=== PATIENT | male | born 1960 | race Caucasian/White ===

== ENCOUNTER 2017-05-05 12:31 | Day surgery (SDC) | payer OTHER, BC ==
[2017-05-05] MEDS ORDERED: HYDROCODONE/APAP 5/325 TAB PO PRN (17:18)
== END 2017-05-05 18:37 | disposition home or self-care (01) ==
LOC: FCATH 12:31
PROVIDERS: ATTEND Internal Medicine Interventional Cardiology
PROC: B211110 Fluoroscopy of Multiple Coronary Arteries using Low Osmolar Contrast, Laser Intraoperative (ICD-10-PCS; principal; 2017-05-05)
PROC: B2151ZZ Fluoroscopy of Left Heart using Low Osmolar Contrast (ICD-10-PCS; principal; 2017-05-05)
PROC: 4A023N7 Measurement of Cardiac Sampling and Pressure, Left Heart, Percutaneous Approach (ICD-10-PCS; principal; 2017-05-05)
DX: I25.119 Atherosclerotic heart disease of native coronary artery with unspecified angina pectoris (principal); E78.5 Hyperlipidemia, unspecified
CPT/HCPCS: 93458; C1769

== ENCOUNTER → 2018-01-03 | Outpatient (CLI) | payer OTHER | LOC: FIMAGING 14:08 | PROVIDERS: ATTEND Family Medicine | DX: R22.31 Localized swelling, mass and lump, right upper limb (principal); N62 Hypertrophy of breast ==

== ENCOUNTER → 2018-07-04 | Outpatient (CLI) | payer OTHER | LOC: FIMAGING 15:04 | PROVIDERS: ATTEND Orthopaedic Surgery | DX: M17.11 Unilateral primary osteoarthritis, right knee (principal); M25.461 Effusion, right knee ==

== ENCOUNTER 2018-08-01 05:56 | Observation (INO) | payer OTHER ==
[2018-08-01] MEDS ORDERED: ROPIVACAINE 0.2% 80 MG, EPINEPHrine 0.2 MG, KETOROLAC TROMETHAMINE 30 MG in SYRINGE 0 ML IU ONE (06:00)
[2018-08-01] MEDS ORDERED: TRANEXAMIC ACID 3,000 MG in NS (SYRINGE) 50 ML IRR ONE (06:00)
[2018-08-01] MEDS ORDERED: ACETAMINOPHEN 325 MG TAB PO ONE (06:16)
[2018-08-01] MEDS ORDERED: DEXAMETHASONE 4 MG/ML VIAL IVP ONE (06:16)
[2018-08-01] MEDS ORDERED: FAMOTIDINE 20 MG TAB PO ONE (06:16)
[2018-08-01] MEDS ORDERED: ceFAZolin 2 GM/DEXTROSE 100 ML IV ONE (06:16)
[2018-08-01] MEDS ORDERED: LR 1,000 ML IV ONE (06:17)
[2018-08-01] MEDS ORDERED: LIDOCAINE 1% 2 ML INJ ID PRN (06:17)
[2018-08-01] MEDS ORDERED: MIDAZOLAM 2 MG/2 ML VIAL IVP ONE (06:44)
--- NOTE | 2018-08-01 06:44 | PDANEPAE ---
ANE History of Present Illness OA here for R knee resurfacing ANE Past Medical History - Cardiovascular History Hx Hypertension: Yes Hx Arrhythmias: No Hx Chest Pain: No Hx Coronary Artery / Peripheral Vascular Disease: No Hx CHF / Valvular Disease: No Hx Palpitations: No - Pulmonary History Hx COPD: No Hx Asthma/Reactive Airway Disease: No Hx Recent Upper Respiratory Infection: No Hx Oxygen in Use at Home: No Hx Sleep Apnea: No Sleep Apnea Screening Result - Last Documented: Positive - Neurologic History Hx Cerebrovascular Accident: No Hx Seizures: No Hx Dementia: No - Endocrine History Hx Diabetes: No - Renal History Hx Renal Disorders: No - Liver History Hx Hepatic Disorders: No - Neurological & Psychiatric Hx Hx Neurological and Psychiatric Disorders: No - Cancer History Hx Cancer: Yes Cancer History Comment: SKIN - Congenital Disorder History Hx Congenital Disorders: No - GI History Hx Gastrointestinal Disorders: Yes Gastrointestinal History Comment: GERD - Other Health History Other Health History: OSTEOARTHRITIS. GYNECOMASTIA - Chronic Pain History Chronic Pain: Yes (SHERRIE KNEE'S) - Surgical History Prior Surgeries: SHERRIE KNEE SCOPES. RT SHLDR RTC REPAIR. REMVL CYST RT AXILLARY ANE Review of Systems Review of Systems: - Exercise capacity Exercise capacity: >=4 METS METS (RN): 5 METS ANE Patient History - Allergies Allergies/Adverse Reactions: No Known Allergies Allergy (Unverified 05/05/17 12:43) - Home Medications Home Medications: Prilosec Otc PO DAILY 05/05/17 [Last Taken 05/05/17] Claritin DAILY 07/03/18 [Last Taken Unknown] - NPO status NPO Status: no food or drink >8 hours - Anes Hx Anes Hx: no prior problems - Smoking Hx Smoking Status: Never smoked - Alcohol Use Alcohol Use: None - Family Anes Hx Family Anes Hx: none Family Hx Anesthesia Complications: NEG ANE Labs/Vital Signs - Vital Signs Vital Signs: reviewed preoperatively; see RN documention for details Height: 177.8 cm Weight: 86.183 kg ANE Physical Exam - Airway Neck exam: FROM Mallampati Score: Class 2 Mouth exam: normal dental/mouth exam - Pulmonary Pulmonary: no respiratory distress, clear to auscultation - Cardiovascular Cardiovascular: regular rate and rhythym, no murmur, rub, or gallop - ASA Status ASA Status: II ANE Anesthesia Plan Anesthesia Plan: GA with mask, spinal Regional Anesthesia: single shot NB, adductor canal FNB
[2018-08-01] MEDS ORDERED: TRANEXAMIC ACID 3,000 MG/50 ML BAG IRR ONE (06:47)
[2018-08-01] MEDS ORDERED: VANCOMYCIN 1 GM VIAL ONE (06:48)
[2018-08-01] MEDS ORDERED: PROPOFOL/EMULSION 500 MG/50 ML BOTTLE IV ONE ×2 (06:52→07:41)
[2018-08-01] MEDS ORDERED: clonIDINE 1 MG/10 ML VIAL EP ONE (07:45)
[2018-08-01] MEDS ORDERED: ROPIVACAINE HCL 150 MG/30 ML INJ ONE (07:45)
[2018-08-01] MEDS ORDERED: oxyCODONE IR 5 MG TAB PO PRN (08:15)
[2018-08-01] MEDS ORDERED: NALOXONE HCL 0.4 MG/ML INJ IVP PRN (08:15)
[2018-08-01] MEDS ORDERED: ACETAMINOPHEN 500 MG TAB PO PRN (08:15)
[2018-08-01] MEDS ORDERED: ONDANSETRON 4 MG/2 ML VIAL IVP PRN ×2 (08:15→08:29)
[2018-08-01] MEDS ORDERED: fentaNYL 100 MCG/2 ML INJ IVP PRN (08:15)
[2018-08-01] MEDS ORDERED: HYDROCODONE/APAP 5/325 TAB PO PRN (08:15)
[2018-08-01] MEDS ORDERED: DIPHENOXYLATE/ATROPINE LOMOTIL 1 TAB PO PRN (08:29)
[2018-08-01] MEDS ORDERED: diphenhydrAMINE 25 MG CAP PO PRN (08:29)
[2018-08-01] MEDS ORDERED: PROMETHAZINE HCL 25 MG/ML INJ IVP PRN (08:29)
[2018-08-01] MEDS ORDERED: BISACODYL 10 MG SUPP PR PRN (08:29)
[2018-08-01] MEDS ORDERED: PROMETHAZINE HCL 25 MG SUPPR PR PRN (08:29)
[2018-08-01] MEDS ORDERED: POLYETHYLENE GLYCOL 3350 17 GM PKT PO PRN (08:29)
[2018-08-01] MEDS ORDERED: METOCLOPRAMIDE 10 MG/2 ML VIAL IVP PRN (08:29)
[2018-08-01] MEDS ORDERED: LACTULOSE 20 GM/30 ML UDCUP PO PRN (08:29)
[2018-08-01] MEDS ORDERED: TEMAZEPAM 15 MG CAP PO PRN (08:29)
[2018-08-01] MEDS ORDERED: MAGNESIUM HYDROXIDE 30 ML UDCUP PO PRN (08:29)
[2018-08-01] MEDS ORDERED: CYCLOBENZAPRINE 10 MG TAB PO PRN (08:29)
[2018-08-01] MEDS ORDERED: ONDANSETRON DISINTEGRATING 4 MG TAB PO PRN (08:29)
[2018-08-01] MEDS ORDERED: LR 1,000 ML IV SCH (08:30)
--- NOTE | 2018-08-01 08:32 | POSTOPPROG ---
Post Op Note Date of Operation: 08/01/18 Surgeon: Kan Monteiro Iv Therapy Nurse: lasha monteiro Anesthesiologist: dr. bocanegra Anesthesia: Spinal, Other (Specify) (adductor canal block) Pre-op Diagnosis: right knee OA Post-op Diagnosis: same Indication: right knee pain Procedure: R med MPL partial knee arthroplasty robot assisted Findings: severe medial knee OA Inf/Abcess present in the surg proc area at time of surgery?: No EBL: 50-100
--- NOTE | 2018-08-01 08:42 | POSTANESTH ---
Post Anesthetic Evaluation Cardiovascular Status: Normal, Stable, Similar to Pre-Op Cond Respiratory Status: Normal, Stable, Similar to Pre-op Cond. Level of Consciousness/Mental Status: Can Participate in Eval, Alert and Oriented Pain Control: Adequate, Prn Tx Ordered Nausea/Vomiting Control: Adequate, Prn Tx Ordered Complications Possibly Related to Anesthesia: None Noted
[2018-08-01] MEDS ORDERED: LISINOPRIL 5 MG TAB PO SCH (09:00)
[2018-08-01] MEDS ORDERED: SENNOSIDES/DOCUSATE SODIUM TAB PO SCH (09:00)
[2018-08-01] MEDS ORDERED: ACETAMINOPHEN 325 MG TAB PO SCH (12:00)
[2018-08-01] MEDS: oxyCODONE IR 5 MG TAB PO PRN ×2 (13:25→16:55)
[2018-08-01] MEDS ORDERED: ceFAZolin 2 GM/DEXTROSE 100 ML IV SCH (15:00)
--- NOTE | 2018-08-01 15:24 | PDHPUP ---
History & Physical Update H&P update statement: This history and physical update is based on an assessment of the patient which was completed after admission or registration (within 24 hours), but prior to the surgery/procedure. H&P update: H&P reviewed & patient examined, no change in patient's condition since H&P completed
[2018-08-01 16:28] VITALS: BP 116/83
[2018-08-01] MEDS ORDERED: FAMOTIDINE 20 MG TAB PO SCH (21:00)
[2018-08-01] MEDS ORDERED: ASPIRIN 81 MG CHEWABLE TAB PO SCH (21:00)
--- NOTE | 2018-08-02 09:15 | GDS ---
ADMISSION DIAGNOSIS: Right knee osteoarthritis. DISCHARGE DIAGNOSIS: Right knee osteoarthritis. PROCEDURE: Right partial knee arthroplasty, medial compartment, robot assisted. VTE PROPHYLAXIS: Recommend aspirin 81 mg twice daily for 4 weeks. BRIEF DESCRIPTION OF HOSPITAL STAY: Patient was admitted for an elective joint arthroplasty. The pa fiorella tolerated the procedure well and has passed physical therapy. The patient was given appropriat e antibiotic prophylaxis and venous thromboembolism prophylaxis. The patient's pain was well control led on oral pain medication, patient was holding down food, and had urinated. Decision was made to d ischarge the patient. The patient was given post-operative prescriptions pre-operatively. PLAN: Follow up as scheduled with Dr. Muse's office August 23 at 10:45 a.m. /[id number]/MODL
--- NOTE | 2018-08-02 12:27 | GOP ---
DATE OF OPERATION: 08/01/2018 SURGEON: Blas Muse MD NEUROSURGEON: Blas Muse MD. LEAD ATHLETE: Vivi Muse P.A.-C. ANESTHESIA: Spinal. PREOPERATIVE DIAGNOSIS: Right knee osteoarthritis. POSTOPERATIVE DIAGNOSIS: Right knee osteoarthritis. PROCEDURE PERFORMED: Right medial compartment partial knee replacement with computer navigation, robotic assist. FINDINGS: ESTIMATED BLOOD LOSS: 30 cc. INDICATIONS: This is a 57-year-old male with progressive pain of the right knee unresponsive to conservative care. Risks and benefits of surgical intervention were explained in detail. DESCRIPTION OF PROCEDURE: The patient was brought to the operating room and placed on the table in supine position. Spinal anesthesia was induced without difficulty. A pneumatic tourniquet was applied about the right proximal thigh and the leg was prepped and draped in sterile fashion. Attention was turned first to the distal aspect of the right femur. At 3 cm proximal to the lateral rise of the femur, 2 percutaneous half pins were placed for fixation of the femoral array. In a similar fashion, 2 pins were placed anterolateral on the tibia for fixation of the tibial array. External land marking and registration of the hip center were performed without difficulty. After exsanguination by elevation, the tourniquet was inflated to 250 mmHg. Incision was made from the tibial tuberosity to the superior pole of the patella. Dissection was carried out through the subcutaneous tissue to the deep fascia using Bovie electrocautery for hemostasis. Medial parapatellar arthrotomy was carried out to the superior pole of the patella. The medial collateral ligament was elevated and the infrapatellar fat pad was resected. Internal femoral and tibial registration were carried out without difficulty and the femoral and tibial checkpoints were placed and verified for accuracy. Attention was turned to the femur. The foot print for the size 4 femoral component was cut with the 6 mm bur using the [email or web address] robotic system and verified for accuracy against the CT based plan. The hole was cut for the femoral post. In a similar fashion, the 6 mm bur was used to cut the foot print for the size 4 tibial component using the [employer]ANIEL system and verified for accuracy against the CT based plan. Attention was turned to the posterior aspect of the knee and remnants of the medial meniscus were excised. The posterior capsule was injected with ropivacaine, epinephrine and Toradol. Trial reduction was carried out and there was excellent range of motion, alignment and stability using the size 4 femoral component and the size 4 x 8 mm polyethylene 4 x 8. All trials were then removed. The joint was thoroughly irrigated and carefully dried. One package of cement and 1 gram of vancomycin were mixed in the vacuum mixer and placed on the fixation surfaces of all components. The components were implanted and all excess cement was thoroughly removed. Implant placement was verified against the CT view plan and found to be excellent. The tourniquet was deflated and all bleeders were coagulated. The wound was thoroughly irrigated and closed using interrupted sutures of 2-0 Vicryl for the joint capsule. The subcu was closed with 3-0 Vicryl and the skin with 4-0 Monocryl. Dermabond and Steri-Strips were applied, followed by a compressive dressing. The patient was then moved from the operating room to the recovery room in good condition, having tolerated the procedure well. PATHOLOGY: Severe medial compartment osteoarthritis. CASE CLASSIFICATION: Clean. /[id number]/MODL MTDD
== END 2018-08-01 17:08 | disposition home or self-care (01) ==
LOC: F3N 05:56
PROVIDERS: ADMIT Orthopaedic Surgery; ATTEND Orthopaedic Surgery
PROC: 8E0Y0CZ Robotic Assisted Procedure of Lower Extremity, Open Approach (ICD-10-PCS; principal; 2018-08-01 07:15)
PROC: 8E0YXBG Computer Assisted Procedure of Lower Extremity, With Computerized Tomography (ICD-10-PCS; principal; 2018-08-01 07:15)
PROC: 0SRC0JZ Replacement of Right Knee Joint with Synthetic Substitute, Open Approach (ICD-10-PCS; principal; 2018-08-01 07:15)
DX: M17.11 Unilateral primary osteoarthritis, right knee (principal)
CPT/HCPCS: 27446; 73560; 97116; 97161; G0378; G8978; G8979; G8980; C1713; J0171; J0690; J0735; J1100; J1885; J2250; J2704; J2795; J3370

== ENCOUNTER → 2018-10-15 | Outpatient (CLI) | payer OTHER | LOC: FIMAGING 09:21 | PROVIDERS: ATTEND Orthopaedic Surgery | DX: Z01.818 Encounter for other preprocedural examination (principal); M17.12 Unilateral primary osteoarthritis, left knee ==

== ENCOUNTER 2018-10-24 05:56 | Observation (INO) | payer OTHER ==
[2018-10-24] MEDS ORDERED: ROPIVACAINE 0.2% 80 MG, EPINEPHrine 0.2 MG, KETOROLAC TROMETHAMINE 30 MG in SYRINGE 0 ML IU ONE (06:00)
[2018-10-24] MEDS ORDERED: TRANEXAMIC ACID 3,000 MG in NS (SYRINGE) 50 ML IRR ONE (06:00)
[2018-10-24] MEDS ORDERED: DEXAMETHASONE 4 MG/ML VIAL IVP ONE (06:27)
[2018-10-24] MEDS ORDERED: FAMOTIDINE 20 MG TAB PO ONE (06:27)
[2018-10-24] MEDS ORDERED: ACETAMINOPHEN 325 MG TAB PO ONE (06:27)
[2018-10-24] MEDS ORDERED: ceFAZolin 2 GM/DEXTROSE 100 ML IV ONE (06:27)
[2018-10-24] MEDS ORDERED: LR 1,000 ML IV ONE (06:28)
[2018-10-24] MEDS ORDERED: TRANEXAMIC ACID 3,000 MG/50 ML BAG IRR ONE (07:37)
[2018-10-24] MEDS ORDERED: VANCOMYCIN 1 GM VIAL ONE (07:37)
[2018-10-24] MEDS ORDERED: MIDAZOLAM 2 MG/2 ML VIAL ONE (07:53)
[2018-10-24] MEDS ORDERED: MIDAZOLAM 2 MG/2 ML VIAL IVP ONE (07:57)
--- NOTE | 2018-10-24 07:57 | PDANEPAE ---
ANE History of Present Illness left partial TKA ANE Past Medical History - Cardiovascular History Hx Hypertension: Yes Hx Arrhythmias: No Hx Chest Pain: No Hx Coronary Artery / Peripheral Vascular Disease: No Hx CHF / Valvular Disease: No Hx Palpitations: No - Pulmonary History Hx COPD: No Hx Asthma/Reactive Airway Disease: No Hx Recent Upper Respiratory Infection: No Hx Oxygen in Use at Home: No Hx Sleep Apnea: No Sleep Apnea Screening Result - Last Documented: Positive - Neurologic History Hx Cerebrovascular Accident: No Hx Seizures: No Hx Dementia: No - Endocrine History Hx Diabetes: No - Renal History Hx Renal Disorders: No - Liver History Hx Hepatic Disorders: No - Neurological & Psychiatric Hx Hx Neurological and Psychiatric Disorders: No - Cancer History Hx Cancer: Yes Cancer History Comment: SKIN - Congenital Disorder History Hx Congenital Disorders: No - GI History Hx Gastrointestinal Disorders: Yes Gastrointestinal History Comment: GERD - Other Health History Other Health History: OSTEOARTHRITIS. GYNECOMASTIA - Chronic Pain History Chronic Pain: Yes (SHERRIE KNEE'S) - Surgical History Prior Surgeries: SHERRIE KNEE SCOPES. RT SHLDR RTC REPAIR. REMVL CYST RT AXILLARY ANE Review of Systems Review of Systems: - Exercise capacity METS (RN): 6 METS ANE Patient History - Allergies Allergies/Adverse Reactions: No Known Allergies Allergy (Verified 10/12/18 08:38) - Home Medications Home medications: home medication list seen and reviewed Home Medications: Omeprazole 20 mg PO DAILY PRN 05/05/17 [Last Taken 10/23/18] Lisinopril [Zestril 5 mg (*)] 5 mg PO DAILY 08/01/18 [Last Taken 10/23/18] Aspirin [Aspirin 81mg (*)] 81 mg PO DAILY 10/12/18 [Last Taken 2 Weeks Ago ~] - NPO status NPO Since - Liquids (Date): 10/23/18 NPO Since - Liquids (Time): 22:15 NPO Since - Solids (Date): 10/23/18 NPO Since - Solids (Time): 19:00 - Anes Hx Anes Hx: no prior problems - Smoking Hx Smoking Status: Never smoked - Family Anes Hx Family Hx Anesthesia Complications: NEG ANE Labs/Vital Signs - Vital Signs Blood Pressure: 120/85 Heart Rate: 64 Respiratory Rate: 18 O2 Sat (%): 93 Height: 177.8 cm Weight: 86.183 kg ANE Physical Exam - Airway Neck exam: FROM Mallampati Score: Class 1 Mouth exam: normal dental/mouth exam - Pulmonary Pulmonary: no respiratory distress - Cardiovascular Cardiovascular: regular rate and rhythym - ASA Status ASA Status: II ANE Anesthesia Plan Anesthesia Plan: spinal Regional Anesthesia: single shot NB, adductor canal FNB
[2018-10-24] MEDS ORDERED: PROPOFOL/EMULSION 500 MG/50 ML BOTTLE IV ONE (08:00)
[2018-10-24] MEDS ORDERED: LIDOCAINE 2% 5 ML SDV ONE (08:00)
[2018-10-24] MEDS ORDERED: ROPIVACAINE HCL 150 MG/30 ML INJ ONE (08:00)
[2018-10-24] MEDS ORDERED: BUPIVACAINE/DEXTROSE 7.5MG/ML 2 ML SPINAL AMP SP ONE (08:00)
[2018-10-24] MEDS ORDERED: LR 500 ML IV PRN (08:28)
[2018-10-24] MEDS ORDERED: NALOXONE HCL 0.4 MG/ML INJ IVP PRN (08:28)
[2018-10-24] MEDS ORDERED: ONDANSETRON 4 MG/2 ML VIAL IVP PRN ×2 (08:28→09:29)
[2018-10-24] MEDS ORDERED: oxyCODONE IR 5 MG TAB PO PRN ×2 (08:28→09:29)
[2018-10-24] MEDS ORDERED: ACETAMINOPHEN 500 MG TAB PO PRN (08:28)
[2018-10-24] MEDS ORDERED: HYDROmorphONE/DILAUDID 2 MG/ML INJ IVP PRN (08:28)
[2018-10-24] MEDS ORDERED: HYDROCODONE/APAP 5/325 TAB PO PRN (08:28)
[2018-10-24] MEDS ORDERED: ALBUTEROL 3 ML DEYVIAL IH PRN (08:28)
[2018-10-24] MEDS ORDERED: METOCLOPRAMIDE 10 MG/2 ML VIAL IVP PRN ×2 (08:28→09:29)
--- NOTE | 2018-10-24 08:28 | POSTANESTH ---
Post Anesthetic Evaluation Cardiovascular Status: Normal, Stable Respiratory Status: Normal, Stable Level of Consciousness/Mental Status: Can Participate in Eval, Alert and Oriented Pain Control: Adequate, Prn Tx Ordered Nausea/Vomiting Control: Adequate, Prn Tx Ordered Complications Possibly Related to Anesthesia: None Noted
[2018-10-24] MEDS ORDERED: PROMETHAZINE HCL 25 MG/ML INJ IVP PRN ×2 (08:33→09:29)
[2018-10-24] MEDS ORDERED: fentaNYL 100 MCG/2 ML INJ ONE ×2 (08:33→09:35)
[2018-10-24] MEDS ORDERED: ONDANSETRON 4 MG/2 ML VIAL ONE (08:41)
[2018-10-24] MEDS ORDERED: DEXAMETHASONE 4 MG/ML VIAL ONE (08:41)
[2018-10-24] MEDS ORDERED: LACTULOSE 20 GM/30 ML UDCUP PO PRN (09:29)
[2018-10-24] MEDS ORDERED: POLYETHYLENE GLYCOL 3350 17 GM PKT PO PRN (09:29)
[2018-10-24] MEDS ORDERED: CYCLOBENZAPRINE 10 MG TAB PO PRN (09:29)
[2018-10-24] MEDS ORDERED: ONDANSETRON DISINTEGRATING 4 MG TAB PO PRN (09:29)
[2018-10-24] MEDS ORDERED: DIPHENOXYLATE/ATROPINE LOMOTIL 1 TAB PO PRN (09:29)
[2018-10-24] MEDS ORDERED: BISACODYL 10 MG SUPP PR PRN (09:29)
[2018-10-24] MEDS ORDERED: PROMETHAZINE HCL 25 MG SUPPR PR PRN (09:29)
[2018-10-24] MEDS ORDERED: MAGNESIUM HYDROXIDE 30 ML UDCUP PO PRN (09:29)
[2018-10-24] MEDS ORDERED: diphenhydrAMINE 25 MG CAP PO PRN (09:29)
[2018-10-24] MEDS ORDERED: TEMAZEPAM 15 MG CAP PO PRN (09:29)
[2018-10-24] MEDS ORDERED: LR 1,000 ML IV SCH (09:30)
[2018-10-24] MEDS: fentaNYL 100 MCG/2 ML INJ IVP PRN ×3 (09:37→11:02)
--- NOTE | 2018-10-24 09:38 | POSTOPPROG ---
Post Op Note Date of Operation: 10/24/18 Surgeon: Kan Muse Family Preservation Caseworker: Vivi Muse, VIVEK Anesthesiologist: Dr. Goldberg Anesthesia: Spinal, Other (Specify) (adductor canal block) Pre-op Diagnosis: Left knee OA Post-op Diagnosis: same Indication: left knee pain Procedure: left medial PKA, robot assisted Findings: severe OA of medial knee Inf/Abcess present in the surg proc area at time of surgery?: No EBL: 50-100
[2018-10-24] MEDS ORDERED: oxyCODONE IR 5 MG TAB ONE (11:05)
[2018-10-24] MEDS ORDERED: ACETAMINOPHEN 325 MG TAB PO SCH (12:00)
[2018-10-24 15:39] VITALS: BP 112/81
[2018-10-24] MEDS ORDERED: ceFAZolin 2 GM/DEXTROSE 100 ML IV SCH (16:00)
[2018-10-24] MEDS ORDERED: SENNOSIDES/DOCUSATE SODIUM TAB PO SCH (21:00)
[2018-10-24] MEDS ORDERED: ASPIRIN 81 MG CHEWABLE TAB PO SCH (21:00)
[2018-10-24] MEDS ORDERED: FAMOTIDINE 20 MG TAB PO SCH (21:00)
[2018-10-25] MEDS ORDERED: LISINOPRIL 5 MG TAB PO SCH (09:00)
--- NOTE | 2018-10-25 09:30 | GOP ---
DATE OF OPERATION: 10/24/2018 SURGEON: Blas Muse MD MIXING TUMBLER OPERATOR: VIVEK Dorado ANESTHESIA: Spinal. PREOPERATIVE DIAGNOSIS: Left knee osteoarthritis. POSTOPERATIVE DIAGNOSIS: Left knee osteoarthritis. PROCEDURE PERFORMED: Left medial compartment partial knee replacement with computer navigation, robotic assist. FINDINGS: ESTIMATED BLOOD LOSS: 30 cc. INDICATIONS: This is a 57 year old male with progressive pain of the left knee unresponsive to conservative care. Risks and benefits of surgical intervention were explained in detail. DESCRIPTION OF PROCEDURE: The patient was brought to the operating room and placed on the table in supine position. Spinal anesthesia was induced without difficulty. A pneumatic tourniquet was applied about the left proximal thigh and the leg was prepped and draped in sterile fashion. Attention was turned first to the distal aspect of the left femur. At 3 cm proximal to the lateral rise of the femur, 2 percutaneous half pins were placed for fixation of the femoral array. In a similar fashion, 2 pins were placed anterolateral on the tibia for fixation of the tibial array. External land marking and registration of the hip center was performed without difficulty. After exsanguination by elevation, the tourniquet was inflated to 250 mmHg. Incision was made from the tibial tuberosity to the superior pole of the patella. Dissection was carried out through the subcutaneous tissue to the deep fascia using Bovie electrocautery for hemostasis. Medial parapatellar arthrotomy was carried out to the superior pole of the patella. The medial collateral ligament was elevated and the infrapatellar fat pad was resected. Internal femoral and tibial registration was carried out without difficulty and the femoral and tibial checkpoints were placed and verified for accuracy. Attention was turned to the femur. The foot print for the size 4 femoral component was cut with the 6 mm bur using the [employer] robotic system and verified for accuracy against the CT based plan. The hole was cut for the femoral post. In a similar fashion, the 6 mm bur was used to cut the foot print for the size 5 tibial component using the DANIEL system and verified for accuracy against the CT based plan. Attention was turned to the posterior aspect of the knee and remnants of the medial meniscus were excised. The posterior capsule was injected with ropivacaine, epinephrine and Toradol. Trial reduction was carried out and there was excellent range of motion, alignment and stability using the size 4 femoral component, the size 5 tibial component and 5 x 8 mm polyethylene. All trials were then removed. The joint was thoroughly irrigated and carefully dried. One package of cement and 1 gram of vancomycin were mixed in the vacuum mixer and placed on the fixation surfaces of all components. The components were implanted and all excess cement was thoroughly removed. Implant placement was verified against the CT view plan and found to be excellent. The tourniquet was deflated and all bleeders were coagulated. The wound was thoroughly irrigated and closed using interrupted sutures of 2-0 Vicryl for the joint capsule. The subcu was closed with 3-0 Vicryl and the skin with 4-0 Monocryl. Dermabond and Steri-Strips were applied, followed by a compressive dressing. The patient was then moved from the operating room to the recovery room in good condition, having tolerated the procedure well. CASE CLASSIFICATION: Clean. /[id number]/MODL MTDD
--- NOTE | 2018-10-27 12:05 | GDS ---
ADMIT DIAGNOSIS: Left knee osteoarthritis. DISCHARGE DIAGNOSIS: Left knee osteoarthritis. PROCEDURE: Left partial knee arthroplasty, medial compartment, with robotic assistance. VTE PROPHYLAXIS: Recommend aspirin 81 mg twice daily for 4 weeks. HOSPITAL STAY: Patient was admitted for an elective joint arthroplasty. The patient tolerated the p rocedure well and has passed physical therapy. The patient was given appropriate antibiotic prophyla xis and venous thromboembolism prophylaxis. The patient's pain was well controlled on oral pain medi cation, patient was holding down food, and had urinated. Decision was made to discharge the patient. The patient was given post-operative prescriptions pre-operatively. PLAN: Appointment with scheduled Dr. Muse's office in 3 weeks. /[id number]/MODL
== END 2018-10-24 17:14 | disposition home or self-care (01) ==
LOC: FSGY 05:56 → F3N 09:32 → EDSTATUS 10:00 → F3N 11:20
PROVIDERS: ADMIT Orthopaedic Surgery; ATTEND Orthopaedic Surgery
DX: M17.12 Unilateral primary osteoarthritis, left knee (principal); I10 Essential (primary) hypertension; K21.9 Gastro-esophageal reflux disease without esophagitis; E78.5 Hyperlipidemia, unspecified
CPT/HCPCS: 27446; 73560; 97161; G0378; C1713; J0171; J0690; J1100; J1885; J2250; J2405; J2704; J2795; J3010; J3370